=== PATIENT | male | born 1955 | race Caucasian/White ===

== ENCOUNTER 2016-09-04 23:01 | Inpatient (IN) | payer OTHER ==
[~2016-09-04] VITALS: Ht 182.9 cm; Wt 84.2 kg
[~2016-09-04 23:01] MED LIST: APR25 PO; CLA10 PO; IND50 PO; LOP50 PO; MOT800 PO; ZES10 PO; ZOL50 PO; [UNRECOGNIZED DRUG - CODE] PO
[2016-09-05 00:10] LABS: BASOPHIL % 0.6 % (0-2); PLATELET COUNT 175 x10^3mcL (130-400); RED CELL DISTRIBUTION WIDTH 13.9 % (11.5-14.5)
[2016-09-05 00:15] LABS: CALCIUM 8.6 mg/dL (8.5-10.1); CARBON DIOXIDE 27.7 mmol/L (21-32); CHLORIDE SERUM 102 mmol/L (98-107); CREATININE SERUM 0.9 mg/dL (0.7-1.3); GFR1 > 60 mL/min; GLUCOSE SERUM 126 mg/dL (74-106); POTASSIUM SERUM 3.6 mmol/L (3.5-5.1); SODIUM SERUM 137 mmol/L (136-145)
[2016-09-05 00:20] LABS: ALBUMIN 3.7 g/dL (3.4-5.0); ALKALINE PHOSPHATASE 96 U/L (46-116); ALT/SGPT 21 U/L (16-63); AMYLASE 37 U/L (25-115); AST/SGOT 20 U/L (15-37); BILIRUBIN TOTAL 0.8 mg/dL (0.20-1.00); LIPASE 53 IU/L (73-393); TOTAL PROTEIN, SERUM 7.2 g/dL (6.4-8.2)
[2016-09-05] MEDS ORDERED: ASPIR 8181 MG PO (03:30)
[2016-09-05] MEDS ORDERED: FENTANYL TR12 MCG/HR TD (03:32)
[2016-09-05] MEDS ORDERED: METOPROLOL TART50 MG PO (03:33)
[2016-09-05] MEDS ORDERED: ZYRTEC ALLERGY10 MG PO (03:34)
[2016-09-05] MEDS ORDERED: ALLOPURINOL100 MG PO (03:35)
[2016-09-05] MEDS ORDERED: ZANTAC 150150 MG PO (03:36)
[2016-09-05] MEDS ORDERED: VENTOLIN H0.09 MG/A1 INH (03:38)
[2016-09-05] MEDS ORDERED: ISOSORBIDE MONO60 MG PO (03:38)
[2016-09-05] MEDS ORDERED: OMEPRAZOLE40 M1 PO (03:39)
[2016-09-05] MEDS ORDERED: HORIZANT600 M1 PO (03:40)
[2016-09-05 03:53] VITALS: BP 125/69
[2016-09-05 04:02] VITALS: BP 125/69
[2016-09-05] MEDS ORDERED: HYDROXYZINE HYD25 MG PO (04:17)
[2016-09-05] MEDS ORDERED: METOPROLOL TAR100 MG PO (04:18)
[2016-09-05 04:27] LABS: CHOLESTEROL/HDL RATIO 1.9; MAGNESIUM 1.9 mg/dL (1.8-2.4); PHOSPHOROUS 3.4 mg/dL (2.5-4.9)
[2016-09-05 04:33] LABS: T3 TOTAL 0.85 ng/mL
[2016-09-05 04:36] LABS: FREE THYROXINE INDEX 2.4 ug/dL (1.4-4.5); T4(THYROXINE) 6.8 ug/dL (4.7-13.3)
[2016-09-05 10:05] VITALS: BP 115/56
[2016-09-05 13:50] VITALS: BP 118/61
[2016-09-05 14:38] LABS: UA SPECIFIC GRAVITY 1.025 (1.005-1.035); microscopic required? YES; urine erythrocyte 1+ (NEGATIVE)
[2016-09-05 14:51] LABS: AMPHETAMINE QUAL UR NONE DETECTED (NEG <=1000)
[2016-09-05 16:38] VITALS: Ht 182.9 cm; Wt 84.2 kg
[2016-09-05 18:36] VITALS: BP 110/55
[2016-09-05 22:14] VITALS: BP 111/57
[2016-09-06 06:07] VITALS: BP 105/60
[2016-09-06 07:44] LABS: CALCIUM 8.2 mg/dL (8.5-10.1); CARBON DIOXIDE 26.9 mmol/L (21-32); CHLORIDE SERUM 103 mmol/L (98-107); CREATININE SERUM 0.9 mg/dL (0.7-1.3); GFR1 > 60 mL/min; GLUCOSE SERUM 138 mg/dL (74-106); POTASSIUM SERUM 3.7 mmol/L (3.5-5.1); SODIUM SERUM 137 mmol/L (136-145)
[2016-09-06 07:59] LABS: PLATELET COUNT 143 x10^3mcL (130-400); RED CELL DISTRIBUTION WIDTH 14.3 % (11.5-14.5)
[2016-09-06 08:00] LABS: BASOPHIL % 0 % (0-2)
[2016-09-06 09:18] VITALS: BP 109/61
[2016-09-06 17:34] VITALS: BP 117/63
[2016-09-06 20:52] VITALS: BP 135/78
[2016-09-07 05:46] VITALS: BP 122/72
[2016-09-07 07:07] LABS: BASOPHIL % 0.1 % (0-2); PLATELET COUNT 156 x10^3mcL (130-400); RED CELL DISTRIBUTION WIDTH 14.2 % (11.5-14.5)
[2016-09-07 09:17] VITALS: BP 110/69
[2016-09-07] MEDS ORDERED: NOR10T PO (12:12)
[2016-09-07] MEDS ORDERED: COL100 PO (12:13)
[2016-09-07 13:24] VITALS: BP 110/69
[2016-09-07 14:02] VITALS: BP 112/64; BP 95/84
[2016-09-07 14:23] VITALS: BP 97/55
== END 2016-09-07 16:30 | disposition home or self-care (01) | DRG 263 ==
LOC: ED 23:01 → MU 09-05 02:33 → DU 09-05 02:33 → MU 09-05 17:11
PROVIDERS: Emergency Medicine; Internal Medicine Gastroenterology; Surgery; ADMIT Family Medicine
PROC: 0FT44ZZ Resection of Gallbladder, Percutaneous Endoscopic Approach (ICD-10-PCS; principal; 2016-09-05 13:30)
PROC: 0DB68ZX Excision of Stomach, Via Natural or Artificial Opening Endoscopic, Diagnostic (ICD-10-PCS; 2016-09-05 13:30)
DX: K80.46 Calculus of bile duct with acute and chronic cholecystitis without obstruction (principal); N17.0 Acute kidney failure with tubular necrosis; K29.70 Gastritis, unspecified, without bleeding; J44.9 Chronic obstructive pulmonary disease, unspecified; I10 Essential (primary) hypertension; F41.9 Anxiety disorder, unspecified; K21.9 Gastro-esophageal reflux disease without esophagitis; J30.2 Other seasonal allergic rhinitis; G89.29 Other chronic pain; M54.5 Low back pain; Z68.25 Body mass index [BMI] 25.0-25.9, adult; Z88.0 Allergy status to penicillin; Z88.2 Allergy status to sulfonamides; I25.10 Atherosclerotic heart disease of native coronary artery without angina pectoris; M48.00 Spinal stenosis, site unspecified
CPT/HCPCS: 43235; 83880; 84439; 94150; C9113; J0690; J1170; J1200; J1610; J1956; J2250; J2310; J2405; J2704; J2710; J2765; J3010; J3490; J7030; J7120; J7620; J7626; Q0092

== ENCOUNTER 2019-04-26 15:52 | Emergency (ER) | payer OTHER, MEDICAID ==
[~2019-04-26] VITALS: Ht 160 cm; Wt 88.5 kg
[~2019-04-26 15:52] MED LIST changes: +ALLOPURINOL100 MG PO; +ASPIR 8181 MG PO; +COL100 PO; +FENTANYL TR12 MCG/HR TD; +HORIZANT600 M1 PO; +HYDROXYZINE HYD25 MG PO; +ISOSORBIDE MONO60 MG PO; +METOPROLOL TAR100 MG PO; +METOPROLOL TART50 MG PO; +NOR10T PO; +OMEPRAZOLE40 M1 PO; +VENTOLIN H0.09 MG/A1 INH; +ZANTAC 150150 MG PO; +ZYRTEC ALLERGY10 MG PO
[2019-04-26 15:57] VITALS: Ht 160 cm; Wt 88.5 kg
[2019-04-26 17:07] VITALS: BP 128/78
== END 2019-04-26 17:08 | disposition home or self-care (01) ==
LOC: ED 15:52
DX: R33.9 Retention of urine, unspecified (principal); R10.30 Lower abdominal pain, unspecified; I10 Essential (primary) hypertension; Z90.49 Acquired absence of other specified parts of digestive tract; M10.9 Gout, unspecified; K21.9 Gastro-esophageal reflux disease without esophagitis; Z87.442 Personal history of urinary calculi; Z88.0 Allergy status to penicillin; Z88.2 Allergy status to sulfonamides